=== PATIENT | female | born 1940 | race Caucasian/White ===

== ENCOUNTER 2020-08-25 14:07 | Emergency (ER) | payer MEDICARE, BC ==
[~2020-08-25] VITALS: Ht 157.5 cm; Wt 59.1 kg
[~2020-08-25 14:07] MED LIST: ALEN5TAB5 PO; AMOX-291 PO; AZIT250T PO; FLUT12HF IH; LEVO25TA4 PO; LEVO75TA PO; OMEP40CA42 PO; SIMV20TA19 PO; TIMO10DR29 OP
--- NOTE | 2020-08-25 14:14 | NUR ---
NO ANSWER IN LOBBY.
[2020-08-25] MEDS ORDERED: ASPIRIN 81 MG TABLET CHEW PO ONE (14:30)
[2020-08-25] MEDS ORDERED: ASPIRIN 81 MG TABLET CHEW ONE (14:35)
--- NOTE | 2020-08-25 14:42 | NUR ---
ASSUMED CARE OF PATIENT. PATIENT REPORTS SHE WAS RECENTLY HOSPITALIZED AT [facility] FOR CHEST PAIN. PT WAS DISCHARGED LAST NIGHT. PT REPORTS SHE IS STILL HAVING CENTER CHEST PAIN. VS STABLE. 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 NSR NOTED. CALL LIGHT IN PLACE. WILL CONTINUE
[2020-08-25 15:01] LABS: ALANINE AMINOTRANSFERASE 27 U/L (12-78); ANION GAP 8 mmol/L (5-15); BASOPHILS % (AUTO) 1 % (0-1); CALCIUM 8.9 mg/dL (8.5-10.1); CHLORIDE 99 mmol/L (98-107); EOSINOPHILS % (AUTO) 1 % (1-7); LYMPHOCYTES % (AUTO) 20 % (22-44); MEAN CORPUSCULAR HEMOGLOBIN 32.9 pg (27.0-34.8); MEAN PLATELET VOLUME 9.7 fL (7.4-10.4); MONOCYTES % (AUTO) 9 % (2-9); NEUTROPHILS % (AUTO) 70 % (42-75); PLATELET COUNT 263 x10^3/uL (130-400); RED BLOOD COUNT 4.21 x10^6/uL (3.82-5.3); RED CELL DISTRIBUTION WIDTH 13.1 % (9.6-15.2)
[2020-08-25 15:04] LABS: MD NO
[2020-08-25 15:06] LABS: ALKALINE PHOSPHATASE 49 U/L (45-117); BILIRUBIN,TOTAL 0.5 mg/dL (0.2-1.0); TOTAL PROTEIN 7.8 g/dL (6.4-8.2); TROPONIN I < 0.015 ng/mL (0.000-0.045)
[2020-08-25 15:24] LABS: FREE T4 (FREE THYROXINE) 0.92 ng/dL (0.76-1.46)
--- NOTE | 2020-08-25 15:33 | NUR ---
PT VISITING WITH FAMILY AT BEDSIDE. 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 NSR NOTED. VS STABLE. CALL LIGHT IN PLACE. WILL CONTINUE TO MONITOR .
[2020-08-25 16:58] VITALS: BP 134/56
== END 2020-08-25 17:07 | disposition home or self-care (01) ==
LOC: ED 15:32
DX: R07.89 Other chest pain (principal); I10 Essential (primary) hypertension; I25.2 Old myocardial infarction; Z85.3 Personal history of malignant neoplasm of breast; Z85.528 Personal history of other malignant neoplasm of kidney
CPT/HCPCS: 36415; 71045; 80053; 84439; 84443; 84484; 85025; 93005; 99285

== ENCOUNTER → 2021-03-13 | Outpatient (CLI) | payer MEDICARE, BC | END | disposition home or self-care (01) | LOC: CFH 12:21 | PROVIDERS: ATTEND Internal Medicine | DX: T17.890A Other foreign object in other parts of respiratory tract causing asphyxiation, initial encounter (principal); R91.8 Other nonspecific abnormal finding of lung field; J98.11 Atelectasis; X58.XXXA Exposure to other specified factors, initial encounter; Y93.89 Activity, other specified; Y92.89 Other specified places as the place of occurrence of the external cause; Y99.8 Other external cause status | CPT/HCPCS: 71250 ==